=== PATIENT | female | born 1960 | race Caucasian/White ===

== ENCOUNTER 2016-12-11 18:05 | Emergency (ER) | payer OTHER, MEDICAID ==
[~2016-12-11] VITALS: Ht 172.7 cm; Wt 76.7 kg
[~2016-12-11 18:05] MED LIST: ALBUTEROL2.5 MG/3 M INH; FLOVENT2 PUFF1 INH; PREDNISONE10 MG ORAL; PROMETH-CODEIN 65 ML PO
[2016-12-11 18:52] VITALS: BP 115/70
[2016-12-11 19:46] VITALS: BP 115/70
--- NOTE | 2016-12-11 21:50 | Emergency Room Report ---
History of Present Illness General Chief Complaint: General Complaint Source: Patient Present Illness HPI 56-year-old female presents ED for evaluation. States approximately 30 minutes by her to arrival she had an episode where her arms felt heavy with tingling sensation. Lasted for approximately 30 seconds. Then resolved. Patient denies any symptoms at this time. Denies any chest pain or shortness of breath. Denies any dizziness or weakness. Denies any slurred speech or facial droop. Denies any arm or leg weakness. Denies any tingling sensation. Patient states she is under a lot of stress recently; there are two family members in her house that are in the hospital. Patient states she is not getting much sleep and she feels very stressed. Notes history of anxiety and takes Xanax at home. Denies any alcohol or drug use. Denies any SI or HI. No other aggravating relieving factors. Denies any other associated symptoms Allergies: Coded Allergies: EPINEPHRINE (Verified Allergy, Unknown, 08/07/16) PENICILLINS (Verified Allergy, Unknown, 08/07/16) Patient History Past Medical History: other - bronchitis Past Surgical History: none Pertinent Family History: none Social History: Denies: alcohol use, drug use, smoking Now: No Immunizations: UTD Reviewed Nursing Documentation: PMH: Agreed, PSxH: Agreed Nursing Documentation-PMH Hx Asthma: Yes - Bronchitis Review of Systems All Other Systems: negative except mentioned in HPI Physical Exam Vital Signs Date Time Temp Pulse Resp B/P Pulse Ox O2 Delivery O2 Flow Rate FiO2 12/11/16 18:11 97.9 76 20 131/77 97 Room Air Sp02 EP Interpretation: reviewed, normal General Appearance: no apparent distress, alert, GCS 15, non-toxic Head: normocephalic, atraumatic Eyes: bilateral eye PERRL, bilateral eye normal inspection ENT: hearing grossly normal, normal pharynx, no angioedema, normal voice Neck: full range of motion, supple/symm/no masses Respiratory: chest non-tender, lungs clear, normal breath sounds, speaking full sentences Cardiovascular #1: regular rate, rhythm, no edema Cardiovascular #2: 2+ carotid (R), 2+ carotid (L), 2+ radial (R), 2+ radial (L) , 2+ dorsalis pedis (R), 2+ dorsalis pedis (L) Gastrointestinal: normal bowel sounds, non tender, soft, non-distended, no guarding, no rebound Rectal: deferred Genitourinary: normal inspection, no CVA tenderness Musculoskeletal: back normal, gait/station normal, normal range of motion, non- tender Neurologic: alert, oriented x3, responsive, program services planner III-XII nml as tested, motor strength/tone normal, sensory intact, cerebellar normal, normal gait, speech normal Psychiatric: judgement/insight normal, memory normal, mood/affect normal, no suicidal/homicidal ideation Reflexes: 3+ bicep (R), 3+ bicep (L), 3+ tricep (R), 3+ tricep (L), 3+ knee (R) , 3+ knee (L) Skin: normal color, no rash, warm/dry, well hydrated Lymphatic: no adenopathy Medical Decision Making Diagnostic Impression: Primary Impression: Numbness and tingling in both hands Additional Impression: Anxiety ER Course Hospital Course 56-year-old F presents ED complaining of tingling to bilateral arms, feeling heavy and weak Differential diagnoses include: HI/unstable angina, CVA/TIA, dehydration, anxiety Clinical course Patient placed on stretcher. on monitoring specialist. After initial history, physical exam reveals a middle-aged female in no acute distress. Head and neck exam unremarkable. No focal neurological deficits. Cranial nerves II through XII intact. Patient has full motor strength both arms and legs. Sensations intact bilaterally. Given the lack of risk factors for cardiac disease my suspicion for acute processes such as CVA or HI is low. Symptoms lasted for only 30 seconds then resolved. Patient is under significant stress with family health problems. Patient also has history of anxiety which can definitely triggered this current reaction. I did offer to check labs and CT for patient patient declined stating that she feels better. I did ask patient return to ED if symptoms do recur I. I feel this is a highly complex case requiring extensive working including EKG/Rhythm strip, Xray/CT/US, Blood/urine lab work, repeat exams while in ED, and administration of strong opiates/narcotics for pain control, admission to hospital or close patient follow up. Diagnosis - numbness and tingling in both hands, anxiety Stable and discharged to home. Followup with PMD. Return to ED if symptoms recur or worse Last Vital Signs Date Time Temp Pulse Resp B/P Pulse Ox O2 Delivery O2 Flow Rate FiO2 12/11/16 19:46 97.2 65 14 115/70 99 Room Air Status: improved Disposition: HOME, SELF-CARE Condition: Stable Patient Instructions: Panic Mariana, [id number] DORIS AGUIRRE M.D. December 11, 2016 21:50
== END 2016-12-11 19:45 | disposition home or self-care (01) ==
LOC: EMR 18:57
DX: R20.0 Anesthesia of skin (principal); F41.9 Anxiety disorder, unspecified; Z88.8 Allergy status to other drugs, medicaments and biological substances; Z88.0 Allergy status to penicillin; J45.909 Unspecified asthma, uncomplicated
CPT/HCPCS: 99283